=== PATIENT | male | born 1985 | race African-American/Black ===

== ENCOUNTER 2018-09-12 13:01 | Emergency (ER) | payer SELFPAY ==
[2018-09-12 13:13] VITALS: BP 138/81
--- NOTE | 2018-09-12 13:59 | ER Document Report ---
ED Head/Face/Scalp Injury - General Chief Complaint: Facial Swelling Stated Complaint: RIGHT EAR/FACIAL PAIN, SWELLING Time Seen by Provider: 09/12/18 13:23 Primary Care Provider: WOLF NASH DO [ASSOCIATE] - Follow up as needed Mode of Arrival: Ambulatory Information source: Patient Notes: 33-year-old male presents to ED for complaint of pain to the right ear face and jaw. He has swelling just in front of the right ear with tenderness to the same area. He states he went to the urgent care and they told him to come right to the emergency room. Patient is alert oriented respirations regular and unlabored speaking in full sentences walks with a even steady gait. He states he was just at the dentist and he does not have any dental cavities. He states the pain is worse when he tries to eat. TRAVEL OUTSIDE OF THE [place] IN LAST 30 DAYS: No - HPI Patient complains to provider of: Pain, Swelling Injury to: Face - Just in front of the ear on the right side Location of problem: Other - Face Occurred: Yesterday Timing: Still present Context: Swelling - Pain in front of the right ear Loss consciousness: No loss of consciousness - Related Data Allergies/Adverse Reactions: No Known Allergies Allergy (Verified 09/12/18 13:02) Past Medical History - General Information source: Patient - Social History Smoking Status: Current Every Day Smoker Cigarette use (# per day): Yes - 1/3 pack/day Chew tobacco use (# tins/day): No Smoking Education Provided: Yes - 4 minutes Frequency of alcohol use: Occasional Drug Abuse: None Occupation: Self-employed Lives with: Spouse/Significant other Family History: Reviewed & Not Pertinent Patient has suicidal ideation: No Patient has homicidal ideation: No - Past Medical History Cardiac Medical History: Reports: None Pulmonary Medical History: Reports: None EENT Medical History: Reports: None Neurological Medical History: Reports: None Endocrine Medical History: Reports: None Renal/ Medical History: Reports: None Malignancy Medical History: Reports None GI Medical History: Reports: None Musculoskeletal Medical History: Reports None Skin Medical History: Reports None Psychiatric Medical History: Reports: None Traumatic Medical History: Reports: None Infectious Medical History: Reports: None Surgical Hx: Negative Past Surgical History: Reports: None - Immunizations Immunizations up to date: Yes Hx Diphtheria, Pertussis, Tetanus Vaccination: Yes Review of Systems - Review of Systems Constitutional: No symptoms reported EENT: Ear pain, Other - Pain and swelling in front of the right ear since yesterday Cardiovascular: No symptoms reported Respiratory: No symptoms reported Gastrointestinal: No symptoms reported Genitourinary: No symptoms reported Male Genitourinary: No symptoms reported Musculoskeletal: No symptoms reported Skin: No symptoms reported Hematologic/Lymphatic: No symptoms reported Neurological/Psychological: No symptoms reported -: Yes All other systems reviewed and negative Physical Exam - Vital signs Vitals: Temp Pulse Resp BP Pulse Ox 97.9 F 78 20 138/81 H 96 09/12/18 13:06 09/12/18 13:06 09/12/18 13:06 09/12/18 13:06 09/12/18 13:06 Interpretation: Normal - General General appearance: Appears well, Alert - HEENT Head: Normocephalic, Atraumatic Eyes: Normal Pupils: PERRL Ears: Normal, Other - Pain in front of the right ear with mild swelling and tenderness External canal: Normal Tympanic membrane: Normal Sinus: Normal Nasal: Normal Mouth/Lips: Normal Mucous membranes: Normal Pharynx: Normal Neck: Normal - Respiratory Respiratory status: No respiratory distress Chest status: Nontender Breath sounds: Normal Chest palpation: Normal - Cardiovascular Rhythm: Regular Heart sounds: Normal auscultation Murmur: No - Abdominal Inspection: Normal Distension: No distension Bowel sounds: Normal Tenderness: Nontender Organomegaly: No organomegaly - Back Back: Normal, Nontender - Extremities General upper extremity: Normal inspection, Nontender, Normal color, Normal ROM, Normal temperature General lower extremity: Normal inspection, Nontender, Normal color, Normal ROM, Normal temperature, Normal weight bearing. No: Debbie's sign - Neurological Neuro grossly intact: Yes Cognition: Normal Orientation: AAOx4 Nani Coma Scale Eye Opening: Spontaneous Nani Coma Scale Verbal: Oriented Nani Coma Scale Motor: Obeys Commands Nani Coma Scale Total: 15 Speech: Normal Motor strength normal: LUE, RUE, LLE, RLE Sensory: Normal - Psychological Associated symptoms: Normal affect, Normal mood - Skin Skin Temperature: Warm Skin Moisture: Dry Skin Color: Normal Course - Re-evaluation Re-evalutation: 09/12/18 21:16 Dr. Khan was consulted concerning this parotitis on the right side of the face. Patient was seen at the urgent care and sent to the emergency room to have testing done. Dr. Khan agreed that patient just needed to go home suck on lemon drops if this did not improve his symptoms by Friday he should follow-up with his primary doctor and/or a learning design specialist. Patient was given instructions concerning parotitis and the lemon drops and also given the name and number for Dr. Nash primary care doctors. Patient was discharged home after he verbalized understanding and agreement with treatment plan. - Vital Signs Vital signs: Temp Pulse Resp BP Pulse Ox 97.9 F 78 20 138/81 H 96 09/12/18 13:06 09/12/18 13:06 09/12/18 13:06 09/12/18 13:06 09/12/18 13:06 Discharge - Discharge Clinical Impression: Parotitis, acute Condition: Stable Disposition: HOME, SELF-CARE Additional Instructions: Parotitis is a swelling and inflammation of the parotid gland I have given you a large patient education sheet from up-to-date about parotitis the basics. As long as there is no bacterial infection the treatment for this is sucking on lemon drops. You develop redness fever or the swelling does not go down with sucking on the lemon drops she will need to return to the emergency room or at ears nose and throat specialist for further investigation and treatment. FOLLOW-UP CARE: If you have been referred to a physician for follow-up care, call the physicians office for an appointment as you were instructed or within the next two days. If you experience worsening or a significant change in your symptoms, notify the physician immediately or return to the Emergency Department at any time for re-evaluation. Forms: Elevated Blood Pressure, Smoking Cessation Education, Return to Work Referrals: WOLF NASH, [ASSOCIATE] - Follow up as needed
--- NOTE | 2018-09-13 10:06 | ER Document Report ---
Doctor's Note Notes: I personally and independently obtained patient history and examined the patient in conjunction with the APC and agree with the assessment, treatment plan and disposition of the patient as recorded by the APC, and have reviewed the APC's note. HISTORY OF PRESENT ILLNESS: Patient is a 33-year-old male that presents to the emergency department for chief complaint of right facial swelling and pain. Patient states that he noticed this earlier this morning, where just in front of his ear is more swollen and red, it seems to have improved since this morning, but wanted to have it evaluated as it is still persisting. ROS: Constitutional: Negative for fever. Cardiovascular: Negative for chest pain. Respiratory: Negative for shortness of breath. Gastrointestinal: Negative for vomiting or abdominal pain Musculoskeletal: Negative for arm, leg or back pain Skin: Negative for rash. Neurological: Negative for weakness or numbness. Other than noted above, the 12 point review of systems was reviewed with the patient and were negative, all pertinent findings are included in the HPI. PHYSICAL EXAMINATION: Vital signs reviewed, nursing noted reviewed. GENERAL: Well-appearing, well-nourished and in no acute distress. HEAD: Atraumatic, normocephalic. EYES: Eyes appear normal, conjunctiva are normal. ENT: nares patent, oropharynx clear without exudates. Moist mucous membranes. Just anterior to the right ear, the parotid gland appears to be mildly inflamed tender, but no significant erythema noted. His salivary glands internally, there was somewhat decreased saliva production at the opening of the parotid duct, on the right compared to the left. NECK: Normal range of motion, supple without lymphadenopathy LUNGS: Breath sounds clear to auscultation bilaterally and equal. No wheezes rales or rhonchi. HEART: Regular rate and rhythm without murmurs ABDOMEN: Soft, nontender, normoactive bowel sounds. No rebound, guarding, or rigidity. No masses appreciated. EXTREMITIES: Nontender, good range of motion, no pitting or edema. NEUROLOGICAL: No focal neurological deficits. Moves all extremities spontaneously Motor and sensory grossly intact on exam. PSYCH: Normal mood, normal affect. SKIN: Warm, Dry, normal turgor, no rashes or lesions noted on exposed skin MEDICAL DECISION MAKING: Patient seen and examined, vital signs reviewed, with the patient has mild parotiditis, likely secondary to sialolithiasis, recommended lemon drops, warm compresses, and follow-up with ENT. Please review detail APC documentation. *Note is created using voice recognition software and may contain spelling, syntax or grammatical errors.
== END 2018-09-12 14:14 | disposition home or self-care (01) ==
LOC: ER 13:01
DX: K11.21 Acute sialoadenitis (principal); F17.210 Nicotine dependence, cigarettes, uncomplicated; Z71.6 Tobacco abuse counseling
CPT/HCPCS: 99283; 99406